=== PATIENT | female | born 1985 | race Caucasian/White ===

== ENCOUNTER → 2019-03-07 | Outpatient (CLI) | payer SELFPAY ==
[2016-06-23 11:02] VITALS: BP 126/56
[~2019-03-07] MED LIST: PLAQUENIL200 MG PO; SPIRIVA RE2.5 MCG/Ac IH
[2019-03-07 12:33] LABS: TOTAL PROTEIN 7.1 g/dL (6.4-8.3)
[2019-03-07 12:35] LABS: EOS % 0.6 % (1.0-5.0); HEMATOCRIT 41.5 % (37.0-47.0); HEMOGLOBIN 13.5 g/dL (12.5-16.0); LYMPH# 1.2 (1.50-4.00); MEAN CELL VOLUME 88 fl (78-100); MEAN CORPUSCULAR HEMOGLOBIN 29 pg (27-31); MEAN CORPUSCULAR HGB CONC 33 g/dL (33-37); MEAN PLATELET VOLUME 9.5 fl (7.4-10.4); MONO # 0.4 (0.20-0.80); NEU # 5.1 (1.40-6.50); PLATELET COUNT 216 K/mm3 (130-400); RED BLOOD COUNT 4.72 M/mm3 (4.10-5.30); RED CELL DISTRIBUTION WIDTH 12.3 % (11.5-14.5); TOTAL BILIRUBIN 1.5 mg/dL (0.2-1.2); WHITE BLOOD COUNT 6.8 K/mm3 (4.8-10.8)
[2019-03-07 12:38] LABS: AST-SGOT 17 U/L (5-34); DIRECT BILIRUBIN 0.5 mg/dL (0.0-0.5)
[2019-03-07 12:39] LABS: ALT/SGPT 13 U/L (0-55)
[2019-03-07 12:41] LABS: URINE APPEARANCE CLEAR; URINE BILIRUBIN NEGATIVE (NEGATIVE); URINE BLOOD NEGATIVE (NEGATIVE); URINE COLOR YELLOW; URINE GLUCOSE NEGATIVE (NEGATIVE); URINE KETONE NEGATIVE (NEGATIVE); URINE LEUKOCYTE ESTERASE NEGATIVE (NEGATIVE); URINE NITRATE NEGATIVE (NEGATIVE); URINE PROTEIN(semi-quant) TRACE mg/dL (NEGATIVE); URINE UROBILINOGEN NORMAL (NORMAL)
[2019-03-07 12:42] LABS: URINE MUCUS PRESENT (NOT PRESENT)
[2019-03-07 13:47] LABS: ERYTHROCYTE SEDIMENTATION RATE 2 mm/hr (0-20)
[2019-03-08 04:00] LABS: COMPLEMENT C3 102 mg/dL (79-152); COMPLEMENT-C4 20 mg/dL (18-55)
== END ==
LOC: LAB 12:07
DX: M32.19 Other organ or system involvement in systemic lupus erythematosus (principal); Z79.899 Other long term (current) drug therapy

== ENCOUNTER → 2019-03-15 | Outpatient (CLI) | payer OTHER ==
[2016-06-23 11:02] VITALS: BP 126/56
== END ==
LOC: LAB 08:34
DX: Z01.89 Encounter for other specified special examinations (principal)

== ENCOUNTER 2019-06-16 16:40 | Emergency (ER) | payer SELFPAY ==
[~2019-06-16] VITALS: Ht 170.2 cm; Wt 54.5 kg
[2019-06-16] MEDS ORDERED: KETOROLAC10 MG PO (18:41)
[2019-06-16 19:24] VITALS: BP 104/50
== END 2019-06-16 19:40 | disposition home or self-care (01) ==
LOC: ED 16:40
DX: S30.0XXA Contusion of lower back and pelvis, initial encounter (principal); S60.211A Contusion of right wrist, initial encounter; S80.11XA Contusion of right lower leg, initial encounter; M79.7 Fibromyalgia; L93.0 Discoid lupus erythematosus; Z87.448 Personal history of other diseases of urinary system; V80.010A Animal-rider injured by fall from or being thrown from horse in noncollision accident, initial encounter; Y93.52 Activity, horseback riding; Y92.89 Other specified places as the place of occurrence of the external cause
CPT/HCPCS: J1885; J2270

== ENCOUNTER → 2019-11-06 | Outpatient (CLI) | payer SELFPAY ==
[~2019-11-06] MED LIST changes: +KETOROLAC10 MG PO
== END ==
LOC: LAB 09:54
DX: M32.9 Systemic lupus erythematosus, unspecified (principal); R06.02 Shortness of breath; R05 Cough

== ENCOUNTER → 2019-12-17 | Outpatient (CLI) | payer SELFPAY | LOC: LAB 11:09 | DX: Z02.83 Encounter for blood-alcohol and blood-drug test (principal) ==

== ENCOUNTER → 2020-02-13 | Outpatient (CLI) | payer SELFPAY ==
[2020-02-13 09:03] LABS: EOS # 0.1 (0.04-0.40); EOS % 2.1 % (1.0-5.0); HEMATOCRIT 42.8 % (37.0-47.0); HEMOGLOBIN 13.9 g/dL (12.5-16.0); MEAN CELL VOLUME 87 fl (78-100); MEAN CORPUSCULAR HEMOGLOBIN 28 pg (27-31); MEAN CORPUSCULAR HGB CONC 33 g/dL (33-37); MEAN PLATELET VOLUME 9.9 fl (7.4-10.4); MONO # 0.4 (0.20-0.80); NEU # 3.3 (1.40-6.50); PLATELET COUNT 253 K/mm3 (130-400); RED BLOOD COUNT 4.91 M/mm3 (4.10-5.30); RED CELL DISTRIBUTION WIDTH 12.3 % (11.5-14.5); WHITE BLOOD COUNT 4.8 K/mm3 (4.8-10.8)
[2020-02-13 09:22] LABS: ALBUMIN 4.4 g/dL (3.5-5.0); POTASSIUM 4.2 mmol/L (3.5-5.1)
[2020-02-13 09:24] LABS: CALCIUM 9.1 mg/dL (8.3-10.5)
[2020-02-13 09:25] LABS: TOTAL PROTEIN 7.8 g/dL (6.4-8.3)
[2020-02-13 09:27] LABS: TOTAL BILIRUBIN 0.8 mg/dL (0.2-1.2)
[2020-02-13 10:06] LABS: D-DIMER 0.21 mg/L FEU (0.15-0.50); ERYTHROCYTE SEDIMENTATION RATE 3 mm/hr (0-20)
[2020-02-13 21:27] LABS: ANA SCREEN with REFLEX Negative (Negative)
== END ==
LOC: RAD 08:49
PROVIDERS: Family Medicine
DX: Z00.00 Encounter for general adult medical examination without abnormal findings (principal); J45.40 Moderate persistent asthma, uncomplicated; M32.8 Other forms of systemic lupus erythematosus; R09.81 Nasal congestion; R22.9 Localized swelling, mass and lump, unspecified; R20.2 Paresthesia of skin; R76.8 Other specified abnormal immunological findings in serum

== ENCOUNTER → 2021-05-13 | Outpatient (CLI) | payer SELFPAY ==
[2021-05-13 09:09] LABS: BASO # 0.03 K/mm3 (0.02-0.10); EOS # 0.04 K/mm3 (0.04-0.40); EOS % 0.9 % (1.0-5.0); HEMOGLOBIN 13.7 g/dL (12.5-16.0); LYMPH# 1.32 K/mm3 (1.50-4.00); MEAN CELL VOLUME 88 fl (78-100); MEAN CORPUSCULAR HEMOGLOBIN 29 pg (27-31); MEAN CORPUSCULAR HGB CONC 33 g/dL (33-37); MEAN PLATELET VOLUME 9.9 fl (7.4-10.4); MONO # 0.37 K/mm3 (0.20-0.80); NEU # 2.77 K/mm3 (1.40-6.50); PLATELET COUNT 229 K/mm3 (130-400); RED BLOOD COUNT 4.78 M/mm3 (4.10-5.30); RED CELL DISTRIBUTION WIDTH 11.9 % (11.5-14.5); WHITE BLOOD COUNT 4.5 K/mm3 (4.8-10.8)
[2021-05-13 09:13] LABS: POTASSIUM 4.3 mmol/L (3.5-5.1); SODIUM 140 mmol/L (136-145)
[2021-05-13 09:14] LABS: CALCIUM 9.6 mg/dL (8.3-10.5)
[2021-05-13 09:15] LABS: GLUCOSE 71 mg/dL (65-105); TOTAL PROTEIN 6.9 g/dL (6.4-8.3)
[2021-05-13 09:16] LABS: CARBON DIOXIDE 22 mmol/L (22-29)
[2021-05-13 09:17] LABS: TOTAL BILIRUBIN 1.6 mg/dL (0.2-1.2)
[2021-05-13 09:21] LABS: AST-SGOT 18 U/L (5-34)
[2021-05-13 09:22] LABS: ALT/SGPT 14 U/L (0-55)
[2021-05-13 10:24] LABS: ERYTHROCYTE SEDIMENTATION RATE 4 mm/hr (0-20)
[2021-05-14 09:44] LABS: COMPLEMENT C3 107 mg/dL (83-193); COMPLEMENT-C4 21 mg/dL (15-57)
[2021-05-16 08:05] LABS: ALTERNARIA TENUIS CNT <0.10 kU/L (()); ASPERGILLUS FUMIGATUS AL COUNT <0.10 kU/L (()); AUREOBASIDIUM PULLULANS CNT <0.10 kU/L (()); CANDIDA ALBICANS ALLERGN COUNT <0.10 kU/L (()); CLADOSPORIUM ALLERGEN COUNT <0.10 kU/L (()); EPICOCCUM PURPURANCEN AL COUNT <0.10 kU/L (()); FUSARIUM MONILIFORME ALL COUNT <0.10 kU/L (()); MUCOR RACEMOSUS ALLERGEN COUNT <0.10 kU/L (()); PENICILLIUM NOTATUM ALLR COUNT <0.10 kU/L (()); PHOMA BETAE ALLERGEN COUNT <0.10 kU/L (()); STEMPHYLIUM BOTRYOSUM AL COUNT <0.10 kU/L (())
== END ==
LOC: LAB 08:35
PROVIDERS: Family Medicine
DX: M35.9 Systemic involvement of connective tissue, unspecified (principal); Z77.120 Contact with and (suspected) exposure to mold (toxic)

== ENCOUNTER → 2021-07-29 | Outpatient (CLI) | payer SELFPAY ==
[2021-07-29 10:06] LABS: BASO # 0.01 K/mm3 (0.02-0.10); EOS # 0.02 K/mm3 (0.04-0.40); EOS % 0.7 % (1.0-5.0); HEMATOCRIT 46.3 % (37.0-47.0); LYMPH# 1.05 K/mm3 (1.50-4.00); MEAN CELL VOLUME 87 fl (78-100); MEAN CORPUSCULAR HEMOGLOBIN 28 pg (27-31); MEAN CORPUSCULAR HGB CONC 32 g/dL (33-37); MEAN PLATELET VOLUME 10.8 fl (7.4-10.4); MONO # 0.34 K/mm3 (0.20-0.80); NEU # 1.62 K/mm3 (1.40-6.50); PLATELET COUNT 163 K/mm3 (130-400); RED BLOOD COUNT 5.32 M/mm3 (4.10-5.30); RED CELL DISTRIBUTION WIDTH 11.8 % (11.5-14.5)
[2021-07-29 10:10] LABS: ALBUMIN 4.3 g/dL (3.5-5.0)
[2021-07-29 10:12] LABS: CALCIUM 9.2 mg/dL (8.3-10.5)
[2021-07-29 10:13] LABS: TOTAL PROTEIN 7.8 g/dL (6.4-8.3)
[2021-07-29 10:15] LABS: TOTAL BILIRUBIN 0.5 mg/dL (0.2-1.2)
== END ==
LOC: LAB 09:27
PROVIDERS: Family Medicine
DX: R19.7 Diarrhea, unspecified (principal)

== ENCOUNTER → 2021-10-22 | Outpatient (CLI) | payer SELFPAY ==
[2021-10-22 09:26] LABS: BASO # 0.03 K/mm3 (0.02-0.10); EOS # 0.04 K/mm3 (0.04-0.40); EOS % 0.9 % (1.0-5.0); HEMATOCRIT 41.9 % (37.0-47.0); HEMOGLOBIN 13.4 g/dL (12.5-16.0); LYMPH# 1.09 K/mm3 (1.50-4.00); MEAN CELL VOLUME 89 fl (78-100); MEAN CORPUSCULAR HEMOGLOBIN 29 pg (27-31); MEAN CORPUSCULAR HGB CONC 32 g/dL (33-37); MEAN PLATELET VOLUME 9.9 fl (7.4-10.4); MONO # 0.34 K/mm3 (0.20-0.80); NEU # 3.19 K/mm3 (1.40-6.50); PLATELET COUNT 224 K/mm3 (130-400); RED BLOOD COUNT 4.71 M/mm3 (4.10-5.30); RED CELL DISTRIBUTION WIDTH 12.5 % (11.5-14.5); WHITE BLOOD COUNT 4.7 K/mm3 (4.8-10.8)
[2021-10-22 09:45] LABS: ALBUMIN 4.1 g/dL (3.5-5.0)
[2021-10-22 09:46] LABS: POTASSIUM 4.3 mmol/L (3.5-5.1)
[2021-10-22 09:48] LABS: TOTAL PROTEIN 6.8 g/dL (6.4-8.3)
[2021-10-22 09:50] LABS: TOTAL BILIRUBIN 1.4 mg/dL (0.2-1.2)
== END ==
LOC: LAB 09:11
PROVIDERS: Nurse Practitioner Family
DX: R59.0 Localized enlarged lymph nodes (principal)

== ENCOUNTER → 2021-11-02 | Outpatient (CLI) | payer SELFPAY ==
[2021-11-02 18:26] LABS: BASO # 0.04 K/mm3 (0.02-0.10); EOS # 0.05 K/mm3 (0.04-0.40); EOS % 0.6 % (1.0-5.0); HEMATOCRIT 41.8 % (37.0-47.0); HEMOGLOBIN 13.6 g/dL (12.5-16.0); LYMPH# 1.78 K/mm3 (1.50-4.00); MEAN CELL VOLUME 89 fl (78-100); MEAN CORPUSCULAR HEMOGLOBIN 29 pg (27-31); MEAN CORPUSCULAR HGB CONC 33 g/dL (33-37); MEAN PLATELET VOLUME 9.8 fl (7.4-10.4); MONO # 0.54 K/mm3 (0.20-0.80); NEU # 5.55 K/mm3 (1.40-6.50); PLATELET COUNT 249 K/mm3 (130-400); RED BLOOD COUNT 4.72 M/mm3 (4.10-5.30); RED CELL DISTRIBUTION WIDTH 12.4 % (11.5-14.5)
== END ==
LOC: LAB 18:13
PROVIDERS: Family Medicine
DX: A69.20 Lyme disease, unspecified (principal)

== ENCOUNTER → 2021-11-30 | Outpatient (CLI) | payer SELFPAY ==
[2021-11-30 11:14] LABS: ALBUMIN 4.5 g/dL (3.5-5.0); POTASSIUM 4.7 mmol/L (3.5-5.1)
[2021-11-30 11:15] LABS: CALCIUM 9.7 mg/dL (8.3-10.5)
[2021-11-30 11:16] LABS: TOTAL PROTEIN 7.5 g/dL (6.4-8.3)
[2021-11-30 11:18] LABS: TOTAL BILIRUBIN 1.1 mg/dL (0.2-1.2)
[2021-11-30 13:59] LABS: BASO # 0.04 K/mm3 (0.02-0.10); EOS # 0.02 K/mm3 (0.04-0.40); EOS % 0.4 % (1.0-5.0); HEMATOCRIT 43.5 % (37.0-47.0); HEMOGLOBIN 14.1 g/dL (12.5-16.0); LYMPH# 1.55 K/mm3 (1.50-4.00); MEAN CELL VOLUME 89 fl (78-100); MEAN CORPUSCULAR HEMOGLOBIN 29 pg (27-31); MEAN CORPUSCULAR HGB CONC 32 g/dL (33-37); MEAN PLATELET VOLUME 10.4 fl (7.4-10.4); MONO # 0.37 K/mm3 (0.20-0.80); NEU # 3.51 K/mm3 (1.40-6.50); PLATELET COUNT 243 K/mm3 (130-400); RED BLOOD COUNT 4.88 M/mm3 (4.10-5.30); RED CELL DISTRIBUTION WIDTH 12.3 % (11.5-14.5); WHITE BLOOD COUNT 5.5 K/mm3 (4.8-10.8)
== END ==
LOC: LAB 09:49
PROVIDERS: Family Medicine
DX: N88.9 Noninflammatory disorder of cervix uteri, unspecified (principal); E80.4 Gilbert syndrome; K58.9 Irritable bowel syndrome, unspecified; J45.40 Moderate persistent asthma, uncomplicated; I73.00 Raynaud's syndrome without gangrene; M32.9 Systemic lupus erythematosus, unspecified; M35.9 Systemic involvement of connective tissue, unspecified; E55.9 Vitamin D deficiency, unspecified; E78.5 Hyperlipidemia, unspecified; G89.29 Other chronic pain; R76.8 Other specified abnormal immunological findings in serum; R20.2 Paresthesia of skin

== ENCOUNTER → 2021-12-03 | Outpatient (CLI) | payer SELFPAY | LOC: LAB 16:10 | DX: N88.9 Noninflammatory disorder of cervix uteri, unspecified (principal); E80.4 Gilbert syndrome; K58.9 Irritable bowel syndrome, unspecified; J45.50 Severe persistent asthma, uncomplicated; I73.00 Raynaud's syndrome without gangrene; M32.9 Systemic lupus erythematosus, unspecified; G89.29 Other chronic pain; M35.9 Systemic involvement of connective tissue, unspecified; E55.9 Vitamin D deficiency, unspecified; E78.5 Hyperlipidemia, unspecified; R76.8 Other specified abnormal immunological findings in serum; R20.2 Paresthesia of skin ==

== ENCOUNTER → 2022-01-11 | Outpatient (CLI) | payer SELFPAY | LOC: LAB 09:15 | DX: E16.2 Hypoglycemia, unspecified (principal) ==

== ENCOUNTER → 2022-01-21 | Outpatient (CLI) | payer SELFPAY ==
[2022-01-21 12:14] LABS: BASO # 0.04 K/mm3 (0.02-0.10); EOS # 0.01 K/mm3 (0.04-0.40); EOS % 0.1 % (1.0-5.0); HEMATOCRIT 41.6 % (37.0-47.0); HEMOGLOBIN 13.7 g/dL (12.5-16.0); LYMPH# 1.37 K/mm3 (1.50-4.00); MEAN CELL VOLUME 88 fl (78-100); MEAN CORPUSCULAR HEMOGLOBIN 29 pg (27-31); MEAN CORPUSCULAR HGB CONC 33 g/dL (33-37); MEAN PLATELET VOLUME 10.1 fl (7.4-10.4); MONO # 0.46 K/mm3 (0.20-0.80); NEU # 6.04 K/mm3 (1.40-6.50); PLATELET COUNT 216 K/mm3 (130-400); RED BLOOD COUNT 4.71 M/mm3 (4.10-5.30); WHITE BLOOD COUNT 7.9 K/mm3 (4.8-10.8)
[2022-01-21 12:23] LABS: ALBUMIN 4.4 g/dL (3.5-5.0); POTASSIUM 4.2 mmol/L (3.5-5.1)
[2022-01-21 12:24] LABS: CALCIUM 9.7 mg/dL (8.3-10.5)
[2022-01-21 12:26] LABS: TOTAL PROTEIN 7.2 g/dL (6.4-8.3)
[2022-01-21 12:27] LABS: TOTAL BILIRUBIN 1.8 mg/dL (0.2-1.2)
== END ==
LOC: LAB 11:46
PROVIDERS: Family Medicine
DX: M32.9 Systemic lupus erythematosus, unspecified (principal)

== ENCOUNTER → 2022-09-17 | Outpatient (CLI) | payer SELFPAY ==
[~2022-09-17] MED LIST changes: +DOXYCYCLINE HY150 M1; +PLAQUENIL PO
[2022-09-17 09:16] LABS: BASO # 0.02 K/mm3 (0.02-0.10); EOS # 0.04 K/mm3 (0.04-0.40); EOS % 0.8 % (1.0-5.0); LYMPH# 1.56 K/mm3 (1.50-4.00); MEAN CELL VOLUME 89 fl (78-100); MEAN CORPUSCULAR HEMOGLOBIN 29 pg (27-31); MEAN CORPUSCULAR HGB CONC 33 g/dL (33-37); MONO # 0.31 K/mm3 (0.20-0.80); NEU # 3.31 K/mm3 (1.40-6.50); PLATELET COUNT 239 K/mm3 (130-400); RED BLOOD COUNT 4.84 M/mm3 (4.10-5.30); RED CELL DISTRIBUTION WIDTH 12.1 % (11.5-14.5); WHITE BLOOD COUNT 5.2 K/mm3 (4.8-10.8)
[2022-09-17 09:19] LABS: ALBUMIN 4.3 g/dL (3.5-5.0); POTASSIUM 4.6 mmol/L (3.5-5.1); SODIUM 142 mmol/L (136-145)
[2022-09-17 09:21] LABS: CALCIUM 9.8 mg/dL (8.3-10.5)
[2022-09-17 09:22] LABS: GLUCOSE 79 mg/dL (65-105); TOTAL PROTEIN 7.9 g/dL (6.4-8.3)
[2022-09-17 09:23] LABS: CARBON DIOXIDE 24 mmol/L (22-29)
[2022-09-17 09:24] LABS: TOTAL BILIRUBIN 1.2 mg/dL (0.2-1.2)
[2022-09-17 09:27] LABS: AST-SGOT 16 U/L (5-34)
[2022-09-17 09:28] LABS: ALT/SGPT 13 U/L (0-55)
[2022-09-17 11:33] LABS: ERYTHROCYTE SEDIMENTATION RATE 5 mm/hr (0-20)
== END ==
LOC: LAB 08:50
PROVIDERS: Family Medicine
DX: Q79.60 Ehlers-Danlos syndrome, unspecified (principal)

== ENCOUNTER → 2023-05-24 | Outpatient (CLI) | payer SELFPAY | LOC: RAD | DX: R06.00 Dyspnea, unspecified (principal) ==

== ENCOUNTER → 2023-06-28 | Outpatient (CLI) | payer SELFPAY | LOC: LAB 09:21 | DX: K63.8219 Small intestinal bacterial overgrowth, unspecified (principal); U09.9 Post COVID-19 condition, unspecified; G89.29 Other chronic pain; E80.4 Gilbert syndrome; K58.9 Irritable bowel syndrome, unspecified; J45.40 Moderate persistent asthma, uncomplicated; I73.00 Raynaud's syndrome without gangrene; E16.2 Hypoglycemia, unspecified; M32.9 Systemic lupus erythematosus, unspecified; R76.8 Other specified abnormal immunological findings in serum ==

== ENCOUNTER → 2023-07-03 | Outpatient (CLI) | payer SELFPAY | LOC: LAB 07:34 | DX: R19.5 Other fecal abnormalities (principal) ==

== ENCOUNTER → 2023-12-05 | Outpatient (CLI) | payer SELFPAY | LOC: LAB 12:30 | DX: E55.9 Vitamin D deficiency, unspecified (principal) ==

== ENCOUNTER → 2024-01-30 | Outpatient (CLI) | payer SELFPAY ==
[2024-01-30 15:06] LABS: D-DIMER 0.39 mg/L FEU (0.15-0.50)
== END ==
LOC: LAB 14:03
PROVIDERS: Family Medicine
DX: R79.1 Abnormal coagulation profile (principal)

== ENCOUNTER → 2024-03-05 | Outpatient (CLI) | payer SELFPAY | LOC: LAB 14:23 | DX: E80.4 Gilbert syndrome (principal) ==

== ENCOUNTER → 2024-04-02 | Outpatient (CLI) | payer SELFPAY ==
[2024-04-02 23:23] LABS: COMPLEMENT C3 93 mg/dL (83-193); COMPLEMENT-C4 18 mg/dL (15-57)
== END ==
LOC: LAB 14:07
PROVIDERS: Family Medicine
DX: M32.9 Systemic lupus erythematosus, unspecified (principal)

== ENCOUNTER → 2024-04-30 | Outpatient (CLI) | payer SELFPAY ==
[2024-04-30 10:02] LABS: BASO # 0.02 K/mm3 (0.02-0.10); EOS # 0.04 K/mm3 (0.04-0.40); EOS % 0.5 % (1.0-5.0); HEMATOCRIT 43.2 % (37.0-47.0); HEMOGLOBIN 13.7 g/dL (12.5-16.0); LYMPH# 1.18 K/mm3 (1.50-4.00); MEAN CELL VOLUME 91 fl (78-100); MEAN CORPUSCULAR HEMOGLOBIN 29 pg (27-31); MEAN CORPUSCULAR HGB CONC 32 g/dL (33-37); MEAN PLATELET VOLUME 10.5 fl (7.4-10.4); MONO # 0.48 K/mm3 (0.20-0.80); NEU # 6.11 K/mm3 (1.40-6.50); PLATELET COUNT 238 K/mm3 (130-400); RED BLOOD COUNT 4.77 M/mm3 (4.10-5.30); RED CELL DISTRIBUTION WIDTH 12.3 % (11.5-14.5); WHITE BLOOD COUNT 7.8 K/mm3 (4.8-10.8)
[2024-04-30 10:10] LABS: ALBUMIN 4.2 g/dL (3.5-5.0)
[2024-04-30 10:11] LABS: CALCIUM 9.3 mg/dL (8.3-10.5)
[2024-04-30 10:12] LABS: TOTAL PROTEIN 6.9 g/dL (6.4-8.3)
[2024-04-30 10:14] LABS: TOTAL BILIRUBIN 0.8 mg/dL (0.2-1.2)
== END ==
LOC: LAB 09:36
PROVIDERS: Family Medicine
DX: I10 Essential (primary) hypertension (principal)

== ENCOUNTER → 2024-06-19 | Outpatient (CLI) | payer SELFPAY ==
[2024-06-19 15:10] LABS: BASO # 0.02 K/mm3 (0.02-0.10); EOS # 0.02 K/mm3 (0.04-0.40); EOS % 0.3 % (1.0-5.0); HEMATOCRIT 43.7 % (37.0-47.0); LYMPH# 1.48 K/mm3 (1.50-4.00); MEAN CELL VOLUME 89 fl (78-100); MEAN CORPUSCULAR HEMOGLOBIN 29 pg (27-31); MEAN CORPUSCULAR HGB CONC 32 g/dL (33-37); MEAN PLATELET VOLUME 9.8 fl (7.4-10.4); MONO # 0.35 K/mm3 (0.20-0.80); NEU # 4.17 K/mm3 (1.40-6.50); PLATELET COUNT 269 K/mm3 (130-400); RED BLOOD COUNT 4.92 M/mm3 (4.10-5.30); RED CELL DISTRIBUTION WIDTH 12.1 % (11.5-14.5)
[2024-06-19 15:25] LABS: ALBUMIN 4.5 g/dL (3.5-5.0)
[2024-06-19 15:26] LABS: CALCIUM 9.8 mg/dL (8.3-10.5)
[2024-06-19 15:28] LABS: TOTAL PROTEIN 7.4 g/dL (6.4-8.3)
[2024-06-19 15:29] LABS: TOTAL BILIRUBIN 1.7 mg/dL (0.2-1.2)
== END ==
LOC: LAB 14:46
PROVIDERS: Family Medicine
DX: D89.40 Mast cell activation, unspecified (principal); E55.9 Vitamin D deficiency, unspecified; R76.8 Other specified abnormal immunological findings in serum

== ENCOUNTER → 2024-08-01 | Outpatient (CLI) | payer SELFPAY ==
[2024-08-01 09:45] LABS: BASO # 0.02 K/mm3 (0.02-0.10); EOS # 0.03 K/mm3 (0.04-0.40); EOS % 0.5 % (1.0-5.0); HEMOGLOBIN 13.9 g/dL (12.5-16.0); LYMPH# 1.39 K/mm3 (1.50-4.00); MEAN CELL VOLUME 88 fl (78-100); MEAN CORPUSCULAR HEMOGLOBIN 29 pg (27-31); MEAN CORPUSCULAR HGB CONC 33 g/dL (33-37); MEAN PLATELET VOLUME 10.6 fl (7.4-10.4); MONO # 0.45 K/mm3 (0.20-0.80); NEU # 3.75 K/mm3 (1.40-6.50); PLATELET COUNT 219 K/mm3 (130-400); RED BLOOD COUNT 4.77 M/mm3 (4.10-5.30); RED CELL DISTRIBUTION WIDTH 12.8 % (11.5-14.5); WHITE BLOOD COUNT 5.7 K/mm3 (4.8-10.8)
[2024-08-01 09:47] LABS: ALBUMIN 4.3 g/dL (3.5-5.0)
[2024-08-01 09:49] LABS: CALCIUM 9.6 mg/dL (8.3-10.5)
[2024-08-01 09:50] LABS: TOTAL PROTEIN 7.1 g/dL (6.4-8.3)
[2024-08-01 09:52] LABS: TOTAL BILIRUBIN 1.5 mg/dL (0.2-1.2)
[2024-08-03 17:06] LABS: EPSTEIN-BARR VIRUS DNA LOG SEE REPORT
== END ==
LOC: RAD 08:37 → LAB 08:37 → RAD 08:45
PROVIDERS: Family Medicine
DX: R22.43 Localized swelling, mass and lump, lower limb, bilateral (principal)

== ENCOUNTER → 2024-09-07 | Outpatient (CLI) | payer SELFPAY ==
[2024-09-07 09:13] LABS: BASO # 0.02 K/mm3 (0.02-0.10); EOS # 0.04 K/mm3 (0.04-0.40); EOS % 0.9 % (1.0-5.0); HEMATOCRIT 41.7 % (37.0-47.0); HEMOGLOBIN 13.6 g/dL (12.5-16.0); LYMPH# 1.34 K/mm3 (1.50-4.00); MEAN CELL VOLUME 91 fl (78-100); MEAN CORPUSCULAR HEMOGLOBIN 30 pg (27-31); MEAN CORPUSCULAR HGB CONC 33 g/dL (33-37); MEAN PLATELET VOLUME 9.9 fl (7.4-10.4); MONO # 0.27 K/mm3 (0.20-0.80); NEU # 2.91 K/mm3 (1.40-6.50); PLATELET COUNT 227 K/mm3 (130-400); RED BLOOD COUNT 4.59 M/mm3 (4.10-5.30); WHITE BLOOD COUNT 4.6 K/mm3 (4.8-10.8)
[2024-09-07 09:23] LABS: ALBUMIN 4.1 g/dL (3.5-5.0)
[2024-09-07 09:24] LABS: CALCIUM 9.1 mg/dL (8.3-10.5)
[2024-09-07 09:25] LABS: TOTAL PROTEIN 7.1 g/dL (6.4-8.3)
[2024-09-07 09:27] LABS: TOTAL BILIRUBIN 1.4 mg/dL (0.2-1.2)
== END ==
LOC: LAB 08:46
PROVIDERS: Family Medicine
DX: I10 Essential (primary) hypertension (principal); M25.50 Pain in unspecified joint

== ENCOUNTER → 2024-10-18 | Outpatient (CLI) | payer SELFPAY ==
[2024-10-18 16:55] LABS: BASO # 0.04 K/mm3 (0.02-0.10); EOS # 0.05 K/mm3 (0.04-0.40); EOS % 0.8 % (1.0-5.0); HEMATOCRIT 42.8 % (37.0-47.0); HEMOGLOBIN 13.9 g/dL (12.5-16.0); LYMPH# 1.77 K/mm3 (1.50-4.00); MEAN CELL VOLUME 91 fl (78-100); MEAN CORPUSCULAR HEMOGLOBIN 30 pg (27-31); MEAN CORPUSCULAR HGB CONC 33 g/dL (33-37); MEAN PLATELET VOLUME 10.3 fl (7.4-10.4); MONO # 0.47 K/mm3 (0.20-0.80); NEU # 4.09 K/mm3 (1.40-6.50); PLATELET COUNT 221 K/mm3 (130-400); RED BLOOD COUNT 4.69 M/mm3 (4.10-5.30); RED CELL DISTRIBUTION WIDTH 12.3 % (11.5-14.5); WHITE BLOOD COUNT 6.4 K/mm3 (4.8-10.8)
[2024-10-18 17:00] LABS: ALBUMIN 4.3 g/dL (3.5-5.0); SODIUM 140 mmol/L (136-145)
[2024-10-18 17:01] LABS: CALCIUM 9.2 mg/dL (8.3-10.5)
[2024-10-18 17:02] LABS: GLUCOSE 96 mg/dL (65-105); TOTAL PROTEIN 7.4 g/dL (6.4-8.3)
[2024-10-18 17:04] LABS: CARBON DIOXIDE 21 mmol/L (22-29); TOTAL BILIRUBIN 0.7 mg/dL (0.2-1.2)
[2024-10-18 17:08] LABS: AST-SGOT 16 U/L (5-34)
[2024-10-18 17:09] LABS: ALT/SGPT 17 U/L (0-55)
[2024-10-19 15:10] LABS: ANA SCREEN with REFLEX Negative (Negative)
== END ==
LOC: LAB 16:26
PROVIDERS: Family Medicine
DX: I10 Essential (primary) hypertension (principal); M25.50 Pain in unspecified joint; R76.8 Other specified abnormal immunological findings in serum

== ENCOUNTER 2024-10-25 13:20 | Emergency (ER) | payer SELFPAY ==
[~2024-10-25] VITALS: Ht 170.2 cm; Wt 61.4 kg
[2024-10-25 13:54] LABS: BASO # 0.02 K/mm3 (0.02-0.10); EOS # 0.02 K/mm3 (0.04-0.40); EOS % 0.3 % (1.0-5.0); HEMATOCRIT 43.2 % (37.0-47.0); LYMPH# 1.35 K/mm3 (1.50-4.00); MEAN CELL VOLUME 91 fl (78-100); MEAN CORPUSCULAR HEMOGLOBIN 30 pg (27-31); MEAN CORPUSCULAR HGB CONC 32 g/dL (33-37); MEAN PLATELET VOLUME 9.7 fl (7.4-10.4); MONO # 0.44 K/mm3 (0.20-0.80); NEU # 5.44 K/mm3 (1.40-6.50); PLATELET COUNT 262 K/mm3 (130-400); RED BLOOD COUNT 4.74 M/mm3 (4.10-5.30); RED CELL DISTRIBUTION WIDTH 12.1 % (11.5-14.5); WHITE BLOOD COUNT 7.3 K/mm3 (4.8-10.8)
[2024-10-25 13:59] LABS: ALBUMIN 4.3 g/dL (3.5-5.0); SODIUM 139 mmol/L (136-145)
[2024-10-25 14:00] LABS: CALCIUM 8.8 mg/dL (8.3-10.5)
[2024-10-25 14:01] LABS: GLUCOSE 85 mg/dL (65-105)
[2024-10-25 14:02] LABS: TOTAL PROTEIN 7.8 g/dL (6.4-8.3)
[2024-10-25 14:03] LABS: CARBON DIOXIDE 22 mmol/L (22-29); TOTAL BILIRUBIN 1.6 mg/dL (0.2-1.2)
[2024-10-25 14:07] LABS: AST-SGOT 18 U/L (5-34)
[2024-10-25 14:08] LABS: ALT/SGPT 15 U/L (0-55)
[2024-10-25 14:15] LABS: TROPONIN-I < 0.030 ng/mL (0.00-0.033)
[2024-10-25] MEDS ORDERED: NS 1,000 ML IV SCH (14:30)
[2024-10-25 15:37] VITALS: BP 117/72
== END 2024-10-25 15:37 | disposition home or self-care (01) ==
LOC: ED 13:20
PROVIDERS: Nurse Practitioner
DX: Z71.1 Person with feared health complaint in whom no diagnosis is made (principal); M35.00 Sjogren syndrome, unspecified
CPT/HCPCS: J7030

== ENCOUNTER → 2024-10-25 | Outpatient (CLI) | payer SELFPAY | LOC: LAB 13:44 | DX: M25.50 Pain in unspecified joint (principal) ==